=== PATIENT | female | born 1990 | race Caucasian/White ===

== ENCOUNTER 2019-07-09 11:03 | Emergency (ER) | payer SELFPAY ==
[~2019-07-09] VITALS: Ht 165.1 cm; Wt 63.5 kg
[~2019-07-09 11:03] MED LIST: BACTRIM DS 8001 TA1 PO; FERRATE325 MG PO; IBUPROFEN600 MG PO; MOTRIN800 MG PO; NKHM; PRENTAL 1 PLUS1 TAB PO; PYRIDIUM200 MG PO; RUFEN800 MG PO; TRAMADOL HCL50 MG PO; [UNRECOGNIZED DRUG - OTHER] PO
[2019-07-09 11:06] VITALS: BP 103/77
[2019-07-09] MEDS ORDERED: TAMIFLU 75MG CA75 MG PO (11:49)
== END 2019-07-09 12:04 | disposition home or self-care (01) ==
LOC: ED 11:03
DX: J10.1 Influenza due to other identified influenza virus with other respiratory manifestations (principal); Z79.899 Other long term (current) drug therapy